=== PATIENT | female | born 1960 | race American Indian/Alaskan Native ===

== ENCOUNTER 2017-12-28 23:37 | Inpatient (IN) | payer OTHER ==
[2017-12-28] MEDS ORDERED: ASPIRIN PO ONE (23:59)
[2017-12-29 00:48] LABS: Basophils % (Auto) 0.7 % (0.0-1.8); Eosinophils # (Auto) 0.4 K/mm3 (0.0-0.4); Hematocrit 40.6 % (30.3-42.9); Hemoglobin 14.4 gm/dl (10.1-14.3); Lymphocytes % (Auto) 30.7 % (13.4-35.0); Mean Corpuscular HGB Conc 35 % (30-34); Mean Corpuscular Hemoglobin 34 pg (28-32); Mean Corpuscular Volume 95 fl (79-97); Monocytes # (Auto) 0.3 K/mm3 (0.0-0.8); Monocytes % (Auto) 4.9 % (0.0-7.3); Platelet Count 306 K/mm3 (140-440); Red Blood Count 4.29 M/mm3 (3.65-5.03); Red Cell Distribution Width 12.6 % (13.2-15.2)
[2017-12-29 01:13] LABS: BUN/Creatinine Ratio 21; Blood Urea Nitrogen 17 mg/dL (7-17); Hemolysis Index 1
[2017-12-29] MEDS ORDERED: ZOFRAN IV ONE (04:21)
[2017-12-29] MEDS ORDERED: TYLENOL PO ONE (04:25)
--- NOTE | 2017-12-29 04:32 | Emergency Department Report ---
HPI - General Chief Complaint: Chest Pain Time Seen by Provider: 12/29/17 04:05 - HPI HPI: The patient is a 57-year-old female with a history of hypertension, who presents for evaluation of chest pain. The patient reports midsternal pressure- like chest pain for the past 1 day, moderate in severity, and associated with headache, nausea, vomiting, and dizziness of same duration as well. The patient denies fever, head injury, neck pain, neck stiffness, trauma to the chest, cough, syncope, hemoptysis, vision or hearing changes, smell or taste changes, paresthesias, facial drooping, lateralizing motor deficit, slurred speech, or other focal neurological deficit. ED Past Medical Hx - Past Medical History Previous Medical History?: Yes Hx Hypertension: Yes - Surgical History Past Surgical History?: Yes Additional Surgical History: - Social History Smoking Status: Never Smoker Substance Use Type: None - Medications Home Medications: Home Medications Medication Instructions Recorded Confirmed Last Taken Type Lisinopril [Zestril] 20 mg PO QDAY 11/17/15 11/17/15 Unknown History Triamterene/Hydrochlorothiazid 50 mg DAILY 11/17/15 11/17/15 Unknown History [Triamterene-Hctz 50-25 mg Cap] ED Review of Systems ROS: Stated complaint: SOB Other details as noted in HPI Constitutional: reports dizziness denies: fever ENT: denies: throat or neck pain Respiratory: denies: cough, shortness of breath Cardiovascular: denies: chest pain Endocrine: denies unexplained weight loss or gain Gastrointestinal: denies: abdominal pain reports nausea Genitourinary: denies: dysuria Musculoskeletal: denies: leg swelling Skin: denies: rash Neurological: reports: headache Hematological/Lymphatic: denies: easy bleeding or easy bruising Psych: denies sadness or hopelessness Physical Exam - Physical Exam Vital Signs: Vital Signs 12/28/17 12/28/17 12/29/17 23:41 23:49 03:43 Temperature 98.2 F 98.2 F 98.3 F Pulse Rate 72 72 50 L Respiratory 16 16 18 Rate Blood Pressure 149/79 149/79 Blood Pressure 149/79 138/63 [Left] O2 Sat by Pulse 100 100 100 Oximetry Physical Exam: General: well-nourished, well-developed, no acute distress Head: Normocephalic, atraumatic Eyes: normal sclera ENT: Mucous membranes are pale and dry Neck: No neck stiffness, no cervical adenopathy Respiratory: Breath sounds equal bilaterally, no wheezing, rales, or rhonchi Cardio: S1 and S2 present, no murmurs, rubs, gallops, capillary refill is delayed Abdomen: Normoactive bowel sounds, soft abdomen, epigastric tenderness to palpation present Musc: No pitting edema Skin: No rash Neuro: alert oriented x4, normal cognition, speech normal, PERRL, EOM intact, no facial drooping, no uvula or tongue deviation on protrusion, no deficit with rotation of neck or shoulder shrug, no obvious gross motor deficit in the upper or lower extremities with flexion or extension at the shoulder, elbow, wrist, hip, knee, or ankle bilaterally, no obvious gross sensation deficit to crude touch or 2 pt discrimination, 2+ symmetric reflexes on DTR testing, no coordination deficit with [id number] testing, Babinski downgoing, Psych: Normal affect ED Course Vital Signs 12/28/17 12/28/17 12/29/17 23:41 23:49 03:43 Temperature 98.2 F 98.2 F 98.3 F Pulse Rate 72 72 50 L Respiratory 16 16 18 Rate Blood Pressure 149/79 149/79 Blood Pressure 149/79 138/63 [Left] O2 Sat by Pulse 100 100 100 Oximetry ED Medical Decision Making - Lab Data Result diagrams: 12/29/17 00:30 12/29/17 00:30 - Medical Decision Making The patient was seen and examined by myself. The patient is placed on a cardiac exercise specialist and continuous pulse ox. On initial evaluation, the patient was found to be in no distress. EKG was negative for findings suggestive of acute cardiac infarct. The patient is given an aspirin and pain medicine. Labs and imaging are obtained. Chest x-ray is negative for pneumothorax, focal consolidation, pulmonary vascular congestion, pleural effusion, or other obvious acute cardiopulmonary disease process. Lab results were non-revealing including negative troponin, WBC, hemoglobin, hematocrit, electrolytes, renal function. CT scan the head is negative for acute intracranial disease process. The patient was reevaluated and reported that their symptoms were improved. As the patient has chest pain and risk factors for development of acute coronary event, the patient will be admitted for close cardiopulmonary monitoring, serial troponins, and evaluation by cardiology. The patient's doc Dr. Cisneros was contacted. he agreed to admit the patient. The ED admit order was placed. The patient was admitted in guarded condition. Critical care attestation.: If time is entered above; I have spent that time in minutes in the direct care of this critically ill patient, excluding procedure time. ED Disposition Clinical Impression: Acute chest pain, Acute non intractable tension-type headache, Sinus bradycardia, Dizziness, Dehydration Disposition: DC-01 TO HOME OR SELFCARE Is pt being admited?: No Does the pt Need Aspirin: No Condition: Stable Instructions: Chest Pain (ED) Referrals: PRIMARY CARE, [Primary Care Provider] - 3-5 Days Time of Disposition: 04:33
--- NOTE | 2017-12-29 04:54 | XRay Report ---
FINAL REPORT PROCEDURE: XR CHEST 1V AP TECHNIQUE: Chest radiograph anteroposterior view. CPT 69047 HISTORY: chest pain COMPARISON: No prior studies are available for comparison. FINDINGS: Heart: Normal. Mediastinum/Vessels: Normal. Lungs/Pleural space: Lungs are expanded and clear. There are no infiltrates, effusions or pneumothoraces.. Bony thorax: No acute osseous abnormality. Life support devices: None. IMPRESSION: No acute cardiopulmonary abnormality.
--- NOTE | 2017-12-29 05:02 | Cat Scan Report ---
FINAL REPORT PROCEDURE: CT HEAD/BRAIN WO CON TECHNIQUE: Computerized tomography of the head was performed without contrast material. HISTORY: headache COMPARISON: No prior studies are available for comparison. FINDINGS: Skull and scalp: Normal. Paranasal sinuses: Normal. Ventricles and subarachnoid spaces: Normal. Cerebrum: No evidence of hemorrhage, acute infarction or mass . Cerebellum and brainstem: No evidence of hemorrhage, acute infarction or mass. Vasculature: Normal. Comments: None. IMPRESSION: Normal Examination
[2017-12-29 05:05] LABS: Alanine Aminotransferase 12 units/L (7-56); Albumin 4.7 g/dL (3.9-5); Lipase 18 units/L (13-60)
[2017-12-29 05:11] LABS: Bilirubin,Direct < 0.2 mg/dL (0-0.2)
[2017-12-29] MEDS ORDERED: ASPIRIN ONE (05:17)
--- NOTE | 2017-12-29 11:50 | History and Physical Report ---
History of Present Illness Date of examination: 12/29/17 Date of admission: 12/29/17 05:57 Chief complaint: chest pain History of present illness: Patient is a 57 y/o lady who has a history of HTN, presented to the Ed on account of retrosternal chest pain that started the day before. Dull in nature, non radiating. None exertional. Has dizziness but no syncope. Denies any shortness of breath or diaphoresis. Came to the ED [facility]. EKG was unremarkable execept for sinus bardyucardia. CXR showed no acute findings. Serial cardiac enzymes x 2 were normal. Admission was requested. Pt denies any fever, nausea or vomiting,. No abdominal pain Past History Past Medical History: hypertension Past Surgical History: No surgical history Social history: denies: smoking, alcohol abuse, prescription drug abuse, IV drug use Family history: no significant family history Medications and Allergies Allergies Allergy/AdvReac Type Severity Reaction Status Date / Time No Known Allergies Allergy Unverified 06/08/15 05:33 Home Medications Medication Instructions Recorded Confirmed Last Taken Type Lisinopril [Zestril] 20 mg PO QDAY 11/17/15 12/29/17 Unknown History Triamterene/Hydrochlorothiazid 50 mg DAILY 11/17/15 12/29/17 Unknown History [Triamterene-Hctz 50-25 mg Cap] Review of Systems ROS unobtainable: due to endotracheal tube Constitutional: no weight loss, no weight gain, no fever, no anorexia, no poor appetite Ears, nose, mouth and throat: no ear pain, no ear discharge, no tinnitis, no decreased hearing, no nose pain, no nasal congestion Breasts: deferred Cardiovascular: chest pain, palpitations, dyspnea on exertion, no orthopnea Respiratory: no cough, no cough with sputum, no excessive sputum, no hemoptysis , no shortness of breath Gastrointestinal: no abdominal pain, no nausea, no vomiting, no diarrhea, no constipation, no change in bowel habits, no coffee ground emesis Genitourinary Female: no pelvic pain, no flank pain Musculoskeletal: no neck stiffness, no neck pain, no shooting arm pain, no arm numbness/tingling Integumentary: no rash, no pruritis, no redness, no sores, no wounds Neurological: no head injury, no transient paralysis, no paralysis, no weakness , no parathesias Psychiatric: no memory loss, no change in sleep habits, no sleep disturbances, no insomnia Endocrine: no cold intolerance, no heat intolerance, no polyphagia, no excessive thirst Hematologic/Lymphatic: no easy bruising, no easy bleeding Exam - Physical Exam Narrative exam: Constitutional: Well-nourished well-developed. In no distress Head: Normocephalic atraumatic Eyes: Pupils are equal round and reactive to light Nose: No enlarged turbinates, no septal deviation. Mouth: Moist mucous membranes. Neck: Supple no thyromegaly. No bruit. No JVD Heart: Regular rate and rhythm, S1-S2 abnormal. No rubs murmurs or gallop Lungs: Clear to auscultation bilaterally no rales or rhonchi Abdomen: Soft, nontender. Bowel sound are present. Extremities: No edema no cyanosis and no clubbing. Neuro: Alert oriented Oriented x3. No focal sensory or motor deficit. Skin: No rashes no hyperemic spots Psychiatry: Euthymic. Calm. - Constitutional Vitals: Temp Pulse Resp BP Pulse Ox 97.6 F 63 20 123/69 100 12/29/17 10:46 12/29/17 10:46 12/29/17 10:46 12/29/17 10:46 12/29/17 10:46 General appearance: Present: no acute distress Results - Labs CBC & Chem 7: 12/29/17 00:30 12/29/17 00:30 Labs: Abnormal lab results 12/29/17 12/29/17 Range/Units 00:30 00:30 Hgb 14.4 H (10.1-14.3) gm/dl MCH 34 H (28-32) pg MCHC 35 H (30-34) % RDW 12.6 L (13.2-15.2) % Eos % (Auto) 6.0 H (0.0-4.3) % Total Protein 8.5 H (6.3-8.2) g/dL Assessment and Plan - Chest pain Admit patient to telemetry Commence oxygen and nitroglycerin and aspirin and morphine. Cardiac enzymes 2. Normal. For stressed test. - Hypertension Continue with his home are antihypertensive medication - Prophylaxis with Lovenox
[2017-12-29] MEDS ORDERED: SODIUM CHLORIDE FLUSH SYRINGE 10 ML IV PRN (12:29)
[2017-12-29] MEDS ORDERED: MORPHINE IV PRN (12:29)
[2017-12-29] MEDS ORDERED: TYLENOL PO PRN (12:29)
[2017-12-29] MEDS ORDERED: ZOFRAN IV PRN (12:29)
[2017-12-29] MEDS ORDERED: TRIAMTERENE PO SCH (13:00)
[2017-12-29] MEDS ORDERED: HYDROCHLOROTHIAZID PO SCH (13:00)
--- NOTE | 2017-12-29 13:42 | XRay Report ---
ROUTINE CHEST, TWO VIEWS: HISTORY: chest pain. The trachea, heart, mediastinal contour, lung thomas and bony thorax are unremarkable. IMPRESSION: Unremarkable chest x-ray. No change since earlier today at 0430 hours.
[2017-12-29 13:53] LABS: Chol/HDL Ratio 3.64 %
[2017-12-29 14:53] LABS: INR 0.99 (0.87-1.13)
[2017-12-29 14:54] LABS: Partial Thromboplastin Time 27.6 Sec. (24.2-36.6)
[2017-12-29] MEDS: ASPIRIN PO SCH (15:26)
[2017-12-29] MEDS: NITRO-BID 2% TP SCH (15:31)
[2017-12-29] MEDS: ZESTRIL PO SCH (15:32)
[2017-12-29] MEDS: PEPCID PO SCH ×2 (15:34→21:05)
[2017-12-29] MEDS: LOVENOX SUB-Q SCH (15:35)
[2017-12-29 20:12] LABS: Creatine Kinase MB < 1.0 ng/mL (0.0-4.0)
[2017-12-29] MEDS: SODIUM CHLORIDE FLUSH SYRINGE 10 ML IV SCH (21:05)
[2017-12-30] MEDS: NITRO-BID 2% TP SCH ×2 (05:21→14:21)
[2017-12-30 05:42] LABS: Basophils # (Auto) 0.1 K/mm3 (0.0-0.1); Basophils % (Auto) 0.9 % (0.0-1.8); Eosinophils # (Auto) 0.3 K/mm3 (0.0-0.4); Eosinophils % (Auto) 5.1 % (0.0-4.3); Hematocrit 37.9 % (30.3-42.9); Hemoglobin 12.9 gm/dl (10.1-14.3); Lymphocytes # (Auto) 2.5 K/mm3 (1.2-5.4); Lymphocytes % (Auto) 39.1 % (13.4-35.0); Mean Corpuscular HGB Conc 34 % (30-34); Mean Corpuscular Hemoglobin 32 pg (28-32); Mean Corpuscular Volume 95 fl (79-97); Monocytes # (Auto) 0.4 K/mm3 (0.0-0.8); Monocytes % (Auto) 6.7 % (0.0-7.3); Platelet Count 260 K/mm3 (140-440); Red Blood Count 3.99 M/mm3 (3.65-5.03); Red Cell Distribution Width 12.7 % (13.2-15.2)
[2017-12-30 06:14] LABS: Alanine Aminotransferase 10 units/L (7-56); BUN/Creatinine Ratio 19; Blood Urea Nitrogen 13 mg/dL (7-17); Calcium 9.2 mg/dL (8.4-10.2); Hemolysis Index 11
[2017-12-30 06:49] LABS: Creatine Kinase MB < 1.0 ng/mL (0.0-4.0)
--- NOTE | 2017-12-30 10:14 | Progress Note ---
Assessment and Plan - Chest pain Continue oxygen and nitroglycerin and aspirin and morphine. Cardiac enzymes 2. Normal. For stressed test. D/c home today if normal - Hypertension - controlled Continue with his home are antihypertensive medication - Prophylaxis with Lovenox Subjective Date of service: 12/30/17 Principal diagnosis: chest pain, HTN Interval history: chest pain getting better. No orthopnea or PND Objective - Exam Narrative Exam: Constitutional: Well-nourished well-developed. In no distress Head: Normocephalic atraumatic Eyes: Pupils are equal round and reactive to light Nose: No enlarged turbinates, no septal deviation. Mouth: Moist mucous membranes. Neck: Supple no thyromegaly. No bruit. No JVD Heart: Regular rate and rhythm, S1-S2 abnormal. No rubs murmurs or gallop Lungs: Clear to auscultation bilaterally no rales or rhonchi Abdomen: Soft, nontender. Bowel sound are present. Extremities: No edema no cyanosis and no clubbing. Neuro: Alert oriented Oriented x3. No focal sensory or motor deficit. Skin: No rashes no hyperemic spots Psychiatry: Euthymic. Calm. - Constitutional Vitals: Vital Signs - 12hr 12/29/17 12/30/17 23:53 04:40 Temperature 98.0 F 98.0 F Pulse Rate 58 L 63 Respiratory 18 20 Rate Blood Pressure 130/63 126/70 O2 Sat by Pulse 97 99 Oximetry - Labs CBC & Chem 7: 12/30/17 05:00 12/30/17 05:00 Labs: Abnormal lab results 12/29/17 12/30/17 Range/Units 00:03 05:00 RDW 12.7 L (13.2-15.2) % Lymph % (Auto) 39.1 H (13.4-35.0) % Eos % (Auto) 5.1 H (0.0-4.3) % LDL Cholesterol Direct 134 H (50-130) mg/dL
[2017-12-30] MEDS: LOVENOX SUB-Q SCH (10:36)
[2017-12-30] MEDS: ASPIRIN PO SCH (11:35)
[2017-12-30] MEDS: ZESTRIL PO SCH (11:35)
[2017-12-30] MEDS: PEPCID PO SCH (11:35)
[2017-12-30] MEDS: SODIUM CHLORIDE FLUSH SYRINGE 10 ML IV SCH (11:36)
--- NOTE | 2017-12-30 19:01 | Discharge Summary ---
Providers - Providers Date of Admission: 12/29/17 05:57 Date of discharge: 12/30/17 Attending physician: PEPPER STILL none Primary care physician: SOFTWARE PRODUCT SPECIALIST Hospitalization Reason for admission: chest pain Condition: Stable Pertinent studies: EKG was unremarkable Chest x-ray that was normal Cardiac enzymes 3 within normal Lexiscan stress, that was normal Procedures: None Hospital course: Patient is a 57 y/o lady who has a history of HTN, presented to the Ed 2017, on account of retrosternal chest pain that started the day before. Dull in nature, non radiating. None exertional. Has dizziness but no syncope. Denies any shortness of breath or diaphoresis. Came to the ED [facility]. EKG was unremarkable execept for sinus bardyucardia. CXR showed no acute findings. CT of the brain was normal. Serial cardiac enzymes x 2 were normal. Admission was requested. Pt denies any fever, nausea or vomiting. No abdominal pain. On admission patient was commenced on oxygen, nitroglycerin, aspirin, morphine. Serial cardiac enzymes 3 were negative. Lexiscan test was done. No ischemic changes identified. She has been resolved. Chest pain is likely secondary to GERD. Patient is being discharged today to follow up with primary care physician in 3-5 days. Disposition: - TO HOME OR SELFCARE Time spent for discharge: 35 mins - Discharge Diagnoses (1) Hypertension Status: Acute (2) Acute chest pain Status: Acute (3) Syncope Status: Acute (4) Hyperlipidemia Status: Acute Core Measure Documentation - Palliative Care Palliative Care/ Comfort Measures: Not Applicable - Core Measures Any of the following diagnoses?: none Exam - Physical Exam Narrative exam: Constitutional: Well-nourished well-developed. In no distress Head: Normocephalic atraumatic Eyes: Pupils are equal round and reactive to light Nose: No enlarged turbinates, no septal deviation. Mouth: Moist mucous membranes. Neck: Supple no thyromegaly. No bruit. No JVD Heart: Regular rate and rhythm, S1-S2 abnormal. No rubs murmurs or gallop Lungs: Clear to auscultation bilaterally no rales or rhonchi Abdomen: Soft, nontender. Bowel sound are present. Extremities: No edema no cyanosis and no clubbing. Neuro: Alert oriented Oriented x3. No focal sensory or motor deficit. Skin: No rashes no hyperemic spots Psychiatry: Euthymic. Calm. - Constitutional Vitals: Temp Pulse Resp BP Pulse Ox 98.3 F 65 18 126/53 100 12/30/17 16:07 12/30/17 16:07 12/30/17 16:07 12/30/17 16:07 12/30/17 16:07 Plan Activity: advance as tolerated Weight Bearing Status: Weight Bear as Tolerated Diet: low cholesterol, low salt Follow up with: PRIMARY CARE, [Primary Care Provider] - 3-5 Days Prescriptions: Famotidine [Pepcid] 20 mg PO QDAY #30 tablet Lisinopril [Zestril TAB] 20 mg PO QDAY #30 tablet
[2017-12-30 20:01] VITALS: BP 117/65
== END 2017-12-30 20:41 | disposition home or self-care (01) | DRG 392 ==
LOC: ED 23:37 → 4A 12-29 05:57
PROVIDERS: ADMIT Internal Medicine; ATTEND Family Medicine
DX: K21.9 Gastro-esophageal reflux disease without esophagitis (principal); R00.1 Bradycardia, unspecified; G44.209 Tension-type headache, unspecified, not intractable; R07.9 Chest pain, unspecified; I10 Essential (primary) hypertension; E86.0 Dehydration; E78.5 Hyperlipidemia, unspecified; R55 Syncope and collapse
CPT/HCPCS: 36415; 70450; 71045; 71046; 78452; 80048; 80053; 80061; 80074; 82550; 82553; 83690; 83880; 84484; 85025; 85610; 85730; 93005; 93010; 93017; 96374; A9502; J1650; J2405

== ENCOUNTER 2018-10-07 07:23 | Emergency (ER) | payer SELFPAY ==
--- NOTE | 2018-10-07 08:46 | Emergency Department Report ---
ED Extremity Problem HPI - General Chief complaint: Extremity Problem,Nontraumatic Stated complaint: LT LEG PAIN Time Seen by Provider: 10/07/18 08:16 Source: patient Mode of arrival: Ambulatory Limitations: No Limitations - History of Present Illness Initial comments: Reports pain around her left knee for approximately 6 months. Reports she received a rx for diclofenac cream from her PCP for same complaint approximately 1 month ago. Denies trauma. Reports she wanted to inquire about a possible injection for her pain. Patient reports she does not take any OTC medications for pain. MD Complaint: extremity pain -: month(s) (approximately 6 months) Location: left History of Same: Yes -: Yes arthralgia Radiation: none Severity scale (0 -10): 2 Quality: aching Consistency: intermittent Improves with: medication, rest Worsens with: weight bearing Associated Symptoms: denies other symptoms - Related Data Home Medications Medication Instructions Recorded Confirmed Last Taken Triamterene/Hydrochlorothiazid 50 mg DAILY 11/17/15 12/29/17 Unknown [Triamterene-Hctz 50-25 mg Cap] Previous Rx's Medication Instructions Recorded Last Taken Type Famotidine [Pepcid] 20 mg PO QDAY #30 tablet 12/30/17 Unknown Rx Lisinopril [Zestril TAB] 20 mg PO QDAY #30 tablet 12/30/17 Unknown Rx Ibuprofen [Motrin 400 MG tab] 400 mg PO Q6H PRN #20 tablet 10/07/18 Unknown Rx methOCARBAMOL [Robaxin TAB] 500 mg PO BID PRN #14 tab 10/07/18 Unknown Rx Allergies Allergy/AdvReac Type Severity Reaction Status Date / Time No Known Allergies Allergy Unverified 06/08/15 05:33 ED Review of Systems ROS: Stated complaint: LT LEG PAIN Other details as noted in HPI Other: GENERAL: No weight change, fatigue, weakness, fever, chills, or night sweats SKIN: No changes in skin or hair, no itching, no rashes, no jaundice HEAD: No trauma, headache, or visual changes EYES: No blurriness, tearing, itching, acute visual loss, conjunctival discoloration, or scleral icterus EARS: No hearing loss, tinnitus, vertigo, or earache NOSE: No rhinorrhea, stuffiness, sneezing, itching, or epistaxis MOUTH: No bleeding gums, hoarseness, sore throat, or swelling CARDIAC: No new murmur, chest pain, palpitations, dyspnea on exertion, orthopnea, PND, or edema RESPIRATORY: No shortness of breath, wheeze, cough, sputum production, hemoptysis, pneumonia, asthma, bronchitis, or emphysema GI: No change in appetite, nausea, vomiting, dysphagia, change in bowel frequency, diarrhea, constipation, bleeding, hematemesis, melena, hematochezia, or abdominal pain URINARY: No frequency, urgency, polyuria, dysuria, hematuria, or incontinence MUSCULOSKELETAL: Left knee pain for approximately 6 months. No muscle weakness, joint stiffness, decrease in range of motion, redness, swelling NEUROLOGIC: No loss of sensation, numbness, tingling, tremors, weakness, paralysis, seizures HEMATOLOGIC: No anemia, easy bruising, bleeding, petechiae, or purpura ENDOCRINE: No hot or cold intolerance, sweating, polyuria, polydipsia or, polyphagia no thyroid problems ED Past Medical Hx - Past Medical History Previous Medical History?: Yes Hx Hypertension: Yes Hx Congestive Heart Failure: No Hx Diabetes: No Hx Asthma: No - Surgical History Past Surgical History?: Yes Additional Surgical History: - Social History Smoking Status: Never Smoker Substance Use Type: None - Medications Home Medications: Home Medications Medication Instructions Recorded Confirmed Last Taken Type Triamterene/Hydrochlorothiazid 50 mg DAILY 11/17/15 12/29/17 Unknown History [Triamterene-Hctz 50-25 mg Cap] Famotidine [Pepcid] 20 mg PO QDAY #30 tablet 12/30/17 Unknown Rx Lisinopril [Zestril TAB] 20 mg PO QDAY #30 tablet 12/30/17 Unknown Rx Ibuprofen [Motrin 400 MG tab] 400 mg PO Q6H PRN #20 tablet 10/07/18 Unknown Rx methOCARBAMOL [Robaxin TAB] 500 mg PO BID PRN #14 tab 10/07/18 Unknown Rx ED Physical Exam - General Limitations: No Limitations - Other Other exam information: GENERAL: Patient in no acute distress HEAD: Normocephalic, atraumatic EYES: PERRLA, EOM intact, no scleral icterus, no papilledema, no conjunctival hemorrhage, visual thomas and acuity wnl HEART: pulses are symmetric LUNGS: No respiratory distress MUSCULOSKELETAL: Normal joint range of motion, no redness, no swelling, no tenderness NEUROLOGIC: GCS 15, Alert and Oriented x3, Cranial nerves intact, normal sensation, normal strength, normal gait, no cerebellar deficit SKIN: Skin is warm and dry, no wounds, no rashes ED Course Vital Signs 10/07/18 10/07/18 07:41 09:10 Temperature 98.3 F Pulse Rate 66 88 Respiratory 16 18 Rate Blood Pressure 189/85 Blood Pressure 170/82 [Left] O2 Sat by Pulse 99 95 Oximetry ED Medical Decision Making - Medical Decision Making Patient comfortable. Plan discharge with conservative managemetn for possible arthralgia and outpatient follow up. Patient agrees with plan and will return if symptoms worsen. Critical care attestation.: If time is entered above; I have spent that time in minutes in the direct care of this critically ill patient, excluding procedure time. ED Disposition Clinical Impression: Knee pain Qualifiers: Chronicity: unspecified Laterality: left Qualified Code(s): M25.562 - Pain in left knee Disposition: - TO HOME OR SELFCARE Is pt being admited?: No Condition: Stable Instructions: Knee Pain (ED) Additional Instructions: Follow up with your PCP for further evaluation within 1-2 days. Prescriptions: Ibuprofen [Motrin 400 MG tab] 400 mg PO Q6H PRN #20 tablet PRN Reason: Pain, Mild (1-3) methOCARBAMOL [Robaxin TAB] 500 mg PO BID PRN #14 tab PRN Reason: Spasms Referrals: KHRIS BOB MD [Staff Physician] - 2-3 Days Time of Disposition: 08:46
[2018-10-07 09:11] VITALS: BP 170/82
== END 2018-10-07 09:12 | disposition home or self-care (01) ==
LOC: ED 07:23
DX: M25.562 Pain in left knee (principal); I10 Essential (primary) hypertension

== ENCOUNTER 2019-01-27 19:26 | Emergency (ER) | payer SELFPAY ==
--- NOTE | 2019-01-27 20:03 | Event Note ---
ED Screening Note Date of service: 01/27/19 Time: 20:02 ED Screening Note: This is a 58 y.o. F. that presents to the ER with headache to occipital for 2 weeks. Patient reports pain is radiating to shoulder. PMH of HTN, GERD, and HLD - chest pain, palpitations, weakness Denies history of migraines This initial assessment/diagnostic orders/clinical plan/treatment(s) is/are subject to change based on patients health status, clinical progression and re- assessment by fellow clinical providers in the ED. Further treatment and workup at subsequent clinical providers discretion. Patient/guardian urged not to elope from the ED as their condition may be serious if not clinically assessed and managed. Initial orders include: Labs and CT of head
--- NOTE | 2019-01-27 21:20 | Cat Scan Report ---
CT head/brain wo con INDICATION / CLINICAL INFORMATION: 58 years Female; headache. TECHNIQUE: Routine CT head without contrast. All CT scans at this location are performed using CT dos e reduction for ALARA by means of automated exposure control. COMPARISON: CT scan from 12/29/2017 FINDINGS: BRAIN / INTRACRANIAL CONTENTS: No acute hemorrhage, mass effect, midline shift, hydrocephalus, or acu te, large territorial infarct. No chronic infarct or focal atrophy. Normal brain volume and ventricul ar/sulcal size for age. No significant white matter abnormality. CRANIOCERVICAL JUNCTION: No significant abnormality. ORBITS: No significant abnormality of visualized orbits. SINUSES / MASTOIDS: No significant abnormality of the visualized paranasal sinuses or mastoid air mercedes ls. ADDITIONAL FINDINGS: None. IMPRESSION: Normal CT scan of the brain. Signer Name: James Sainz MD Signed: 01/27/2019 9:15 PM Workstation Name: [id number]
[2019-01-27 21:41] LABS: Basophils # (Auto) 0.1 K/mm3 (0.0-0.1); Basophils % (Auto) 0.9 % (0.0-1.8); Eosinophils # (Auto) 0.2 K/mm3 (0.0-0.4); Eosinophils % (Auto) 2.9 % (0.0-4.3); Hematocrit 39.5 % (30.3-42.9); Hemoglobin 13.4 gm/dl (10.1-14.3); Lymphocytes % (Auto) 28.4 % (13.4-35.0); Mean Corpuscular HGB Conc 34 % (30-34); Mean Corpuscular Volume 96 fl (79-97); Monocytes # (Auto) 0.5 K/mm3 (0.0-0.8); Monocytes % (Auto) 6.5 % (0.0-7.3); Platelet Count 285 K/mm3 (140-440); Red Cell Distribution Width 12.2 % (13.2-15.2)
[2019-01-27 21:46] LABS: Bacteria,Urine 1+ /HPF (Negative); Bilirubin,Urine NEG (Negative); Blood,Urine SM (Negative); Color,Urine Straw (Yellow); Protein,Urine <15 mg/dL mg/dL (Negative); Urobilinogen,Urine < 2.0 mg/dL (<2.0)
[2019-01-27] MEDS ORDERED: ASPIRIN 325 MG TAB PO ONE (21:59)
[2019-01-27 22:11] LABS: Alanine Aminotransferase 11 units/L (7-56); Albumin 4.7 g/dL (3.9-5); BUN/Creatinine Ratio 11; Blood Urea Nitrogen 8 mg/dL (7-17); Calcium 9.8 mg/dL (8.4-10.2); Hemolysis Index 3
[2019-01-27 22:51] LABS: INR 1.02 (0.87-1.13)
[2019-01-27 22:52] LABS: Partial Thromboplastin Time 27.1 Sec. (24.2-36.6)
[2019-01-27] MEDS ORDERED: KETOROLAC 30 MG/1 ML INJ IV ONE (23:12)
[2019-01-27] MEDS ORDERED: dexAMETHasone 20 MG/5 ML VIAL IV ONE (23:12)
[2019-01-27] MEDS ORDERED: hydrALAZINE 20 MG/1 ML INJ IV ONE (23:18)
--- NOTE | 2019-01-28 00:45 | XRay Report ---
CHEST 2 VIEWS INDICATION / CLINICAL INFORMATION: chest pain. COMPARISON: 12/29/17 FINDINGS: SUPPORT DEVICES: None. HEART / MEDIASTINUM: No significant abnormality. LUNGS / PLEURA: No significant pulmonary or pleural abnormality. No pneumothorax. ADDITIONAL FINDINGS: No significant additional findings. IMPRESSION: 1. No acute findings. No change. Signer Name: Neena Jansen MD Signed: 01/28/2019 12:40 AM Workstation Name: [id number]
--- NOTE | 2019-01-28 01:43 | Emergency Department Report ---
ED Headache HPI - General Chief Complaint: Headache Stated Complaint: HEAD/L SHOULDER PAIN Time Seen by Provider: 01/27/19 20:02 Source: patient Exam Limitations: no limitations - History of Present Illness Initial Comments: Patient is a 58-year-old -N[place]alese female with a history of hypertension but noncompliant on her medications who presents to the ED with persistently elevated blood pressure, headache, dizziness for the last 2 weeks constantly. Patient states that the headache radiates from the occipital area to the parietal area. Patient states that these symptoms have been constant but got worse in the last 2 days this patient in the last 12 hours when she felt that her headache and dizziness was getting worse. Patient denies nausea, vomiting, chest pain, shortness of breath, change in vision, syncope, palpitations, seizures, abdominal pain, back pain, traumatic injury or heavy lifting, fever or chills, cough, diarrhea, hematuria or dysuria. Patient states that she is supposed to be taking lisinopril for her hypertension but decided not on postop taking the same medication stating "I do not likely medication made me feel". Patient states that she has not taken her blood pressure medications in over 2 weeks. Timing/Duration: constant, waxing and waning, other (over 2 weeks) Quality: moderate Head Injury Location: occipital Recent Head Trauma: no recent headache/trauma Modifying Factors: improves with: other (Noncompliant with medications) Associated Symptoms: denies symptoms. denies: confusion, facial pain, fever/chills, flushing, loss of consciousness, nausea/vomiting, nasal congestio n, nasal drainage, numbness in legs/feet, seizures, sinus infection, stiff neck, vision changes, weakness Allergies/Adverse Reactions: Allergies No Known Allergies Allergy (Unverified 06/08/15 05:33) Home Medications: Ambulatory Orders Triamterene/Hydrochlorothiazid [Triamterene-Hctz 50-25 mg Cap] 50 mg DAILY 11/17/15 Famotidine [Pepcid] 20 mg PO QDAY #30 tablet 12/30/17 Lisinopril [Zestril TAB] 20 mg PO QDAY #30 tablet 12/30/17 Ibuprofen [Motrin 400 MG tab] 400 mg PO Q6H PRN #20 tablet 10/07/18 methOCARBAMOL [Robaxin TAB] 500 mg PO BID PRN #14 tab 10/07/18 Butalb/Acetamin/Caff 50-325-40 [Fioricet 50-325-40] 1 tab PO Q6HR PRN #12 tab 01/28/19 Meclizine [Antivert] 25 mg PO Q8H PRN #30 tablet 01/28/19 Naproxen 500 mg PO Q12H PRN #20 tablet 01/28/19 amLODIPine 10 mg PO DAILY #30 tab 01/28/19 ED Review of Systems ROS: Stated complaint: HEAD/L SHOULDER PAIN Other details as noted in HPI Constitutional: denies: chills, fever Eyes: denies: eye pain, eye discharge, vision change ENT: denies: ear pain, throat pain Respiratory: denies: cough, shortness of breath, SOB with exertion, wheezing Cardiovascular: denies: chest pain, palpitations, syncope, paroxysmal nocturnal dyspnea Endocrine: no symptoms reported Gastrointestinal: denies: abdominal pain, nausea, vomiting, diarrhea Genitourinary: denies: urgency, dysuria, discharge Musculoskeletal: arthralgia (neck pain). denies: back pain, joint swelling Skin: denies: rash, lesions Neurological: headache, other (dizziness, lightheadedness). denies: weakness, paresthesias Psychiatric: denies: anxiety, depression Hematological/Lymphatic: denies: easy bleeding, easy bruising ED Past Medical Hx - Past Medical History Previous Medical History?: Yes Hx Hypertension: Yes Hx Congestive Heart Failure: No Hx Diabetes: No Hx Asthma: No - Surgical History Past Surgical History?: Yes Additional Surgical History: - Social History Smoking Status: Never Smoker - Medications Home Medications: Home Medications Medication Instructions Recorded Confirmed Last Taken Type Triamterene/Hydrochlorothiazid 50 mg DAILY 11/17/15 12/29/17 Unknown History [Triamterene-Hctz 50-25 mg Cap] Famotidine [Pepcid] 20 mg PO QDAY #30 tablet 12/30/17 Unknown Rx Lisinopril [Zestril TAB] 20 mg PO QDAY #30 tablet 12/30/17 Unknown Rx Ibuprofen [Motrin 400 MG tab] 400 mg PO Q6H PRN #20 tablet 10/07/18 Unknown Rx methOCARBAMOL [Robaxin TAB] 500 mg PO BID PRN #14 tab 10/07/18 Unknown Rx Butalb/Acetamin/Caff 50-325-40 1 tab PO Q6HR PRN #12 tab 01/28/19 Unknown Rx [Fioricet 50-325-40] Meclizine [Antivert] 25 mg PO Q8H PRN #30 tablet 01/28/19 Unknown Rx Naproxen 500 mg PO Q12H PRN #20 tablet 01/28/19 Unknown Rx amLODIPine 10 mg PO DAILY #30 tab 01/28/19 Unknown Rx ED Physical Exam - General Limitations: No Limitations General appearance: alert, in no apparent distress - Head Head exam: Present: atraumatic, normocephalic, normal inspection - Eye Eye exam: Present: normal appearance, PERRL, EOMI Pupils: Present: normal accommodation - ENT ENT exam: Present: normal exam, normal orophraynx, mucous membranes moist, TM's normal bilaterally, normal external ear exam - Neck Neck exam: Present: normal inspection, full ROM - Respiratory Respiratory exam: Present: normal lung sounds bilaterally. Absent: respiratory distress, wheezes, rales, chest wall tenderness, accessory muscle use, prolonged expiratory - Cardiovascular Cardiovascular Exam: Present: regular rate, normal rhythm, normal heart sounds. Absent: systolic murmur, diastolic murmur, rubs, gallop - GI/Abdominal GI/Abdominal exam: Present: soft, normal bowel sounds. Absent: tenderness, guarding, hyperactive bowel sounds, hypoactive bowel sounds, organomegaly, pulsatile mass - Extremities Exam Extremities exam: Present: normal inspection, full ROM, normal capillary refill - Back Exam Back exam: Present: normal inspection, full ROM - Neurological Exam Neurological exam: Present: alert, oriented X3, CN II-XII intact, normal gait, reflexes normal - Psychiatric Psychiatric exam: Present: normal affect, normal mood - Skin Skin exam: Present: warm, dry, intact, normal color. Absent: rash ED Course Vital Signs 01/27/19 01/27/19 01/28/19 19:41 23:18 00:09 Temperature 98.2 F 98.4 F Pulse Rate 69 62 82 Respiratory 18 20 14 Rate Blood Pressure 216/115 Blood Pressure 215/99 [Right] O2 Sat by Pulse 100 100 Oximetry 01/28/19 01/28/19 01/28/19 00:15 00:31 00:45 Temperature Pulse Rate 59 L 55 L 60 Respiratory 27 H 16 20 Rate Blood Pressure 136/93 136/93 136/93 Blood Pressure [Right] O2 Sat by Pulse 96 100 100 Oximetry 01/28/19 01/28/19 01/28/19 00:51 01:00 EST 01:15 EST Temperature Pulse Rate 62 66 64 Respiratory 17 15 Rate Blood Pressure 216/115 147/76 142/69 Blood Pressure [Right] O2 Sat by Pulse 100 100 Oximetry 01/28/19 01/28/19 01/28/19 01:30 EST 01:45 EST 02:00 Temperature Pulse Rate 68 65 65 Respiratory 30 H 17 15 Rate Blood Pressure 163/66 144/75 145/71 Blood Pressure [Right] O2 Sat by Pulse 100 100 100 Oximetry - Reevaluation(s) Reevaluation #1: 01/28/19 01:53 EST This is a 58-year-old female who presented to the ED with uncontrolled hypertension, headache and dizziness for 2 weeks. In the ED, patient is alert and oriented 3 and is not in distress but hypertensive in triage. Labs were drawn and head CT scan without contrast ordered as well as chest x-ray. Patient was also treated for pain and also treated for hypertension. Lab test results were reviewed and are all nonactionable including initial troponin and repeat troponin levels. Head CT scan without contrast shows no acute intracranial abnormalities or hemorrhage. Chest x-ray shows no acute cardiopulmonary abnormalities or pneumonitis. Repeat vital signs showed has significantly improved bilateral pressure 166/82 after treatment with hydralazine 20 mg IV 1. Patient was observed in the ED, and on reevaluation, patient slept throughout most of the ED stay, waking up to answer questions got back to sleep. The final blood pressure reading was still significantly improved. Patient was discharged home on pain medications and new blood pressure medication prescription, amlodipine. Patient was then advised to follow-up with [facility] for further evaluation. Patient was otherwise advised to return to the ED immediately if symptoms get worse. ED Medical Decision Making - Lab Data Result diagrams: 01/27/19 21:33 01/27/19 21:33 - EKG Data Rate: bradycardia - Radiology Data Radiology results: report reviewed, image reviewed Chest x-ray shows no acute cardiopulmonary abnormalities or pneumonitis. Head CT scan without contrast shows no acute intracranial abnormalities or hemorrhage - Medical Decision Making This is a 58-year-old female who presented to the ED with uncontrolled hypertension, headache and dizziness for 2 weeks. In the ED, patient is alert and oriented 3 and is not in distress but hypertensive in triage. Labs were drawn and head CT scan without contrast ordered as well as chest x-ray. Patient was also treated for pain and also treated for hypertension. Lab test results were reviewed and are all nonactionable including initial troponin and repeat troponin levels. EKG shows sinus bradycardia with ventricular rate of 52 bpm, and no ST or T-wave abnormalities. Head CT scan without contrast shows no acute intracranial abnormalities or hemorrhage. Chest x-ray shows no acute cardiopulmonary abnormalities or pneumonitis. Repeat vital signs showed has significantly improved bilateral pressure 166/82 after treatment with hydralazine 20 mg IV 1. Patient was observed in the ED, and on reevaluation, patient slept throughout most of the ED stay, waking up to answer questions got back to sleep. The final blood pressure reading was still significantly improved. Patient was discharged home on pain medications and new blood pressure medication prescription, amlodipine. Patient was then advised to follow-up with [facility] for further evaluation. Patient was otherwise advised to return to the ED immediately if symptoms get worse. - Differential Diagnosis ACS; Dizziness; Uncontrolled HTN; Tension headache Critical care attestation.: If time is entered above; I have spent that time in minutes in the direct care of this critically ill patient, excluding procedure time. ED Disposition Clinical Impression: Uncontrolled stage 2 hypertension, Dizziness and giddiness Tension-type headache Qualifiers: Headache chronicity pattern: acute headache Intractability: not intractable Qualified Code(s): G44.209 - Tension-type headache, unspecified, not intractable Disposition: DC-01 TO HOME OR SELFCARE Is pt being admited?: No Does the pt Need Aspirin: No Condition: Stable Instructions: Tension Headache (ED), Hypertension (ED), Dizziness (ED) Additional Instructions: Take medication with food, drink plenty of fluids and follow-up with your primary care physician at [facility] in 5-7 days for reevaluation. Return to the ED immediately if symptoms get worse. Prescriptions: amLODIPine 10 mg PO DAILY #30 tab Meclizine [Antivert] 25 mg PO Q8H PRN #30 tablet PRN Reason: dizziness Butalb/Acetamin/Caff 50-325-40 [Fioricet 50-325-40] 1 tab PO Q6HR PRN #12 tab PRN Reason: Headache Naproxen 500 mg PO Q12H PRN #20 tablet PRN Reason: Pain , Severe (7-10) Referrals: [facility] [Outside] - 3-5 Days Time of Disposition: 01:45 Print Language: [place]IZ[place]
[2019-01-28 02:17] VITALS: BP 215/99
== END 2019-01-28 02:16 | disposition home or self-care (01) ==
LOC: ED 19:26
DX: G44.209 Tension-type headache, unspecified, not intractable (principal); I10 Essential (primary) hypertension; M25.512 Pain in left shoulder; Z79.899 Other long term (current) drug therapy
CPT/HCPCS: 36415; 70450; 71046; 80053; 81001; 84484; 85025; 85610; 85730; 93005; 93010; 96374; 96375; 99285; J0360; J1100; J1885